=== PATIENT | male | born 1970 | race Caucasian/White ===

== ENCOUNTER 2021-01-20 13:32 | Emergency (ER) | payer OTHER ==
[2021-01-20] MEDS ORDERED: DIPHTH,PERTUSS(ACELL),TET 0.5 ML DISP.SYRIN IM ONE ×2 (13:38→14:05)
[2021-01-20 13:39] VITALS: BP 172/97; PULSE 73; TEMP 99.3; BMI 29.7
== END 2021-01-20 14:50 | disposition home or self-care (01) ==
LOC: FER 13:32
PROC: 3E0234Z Introduction of Serum, Toxoid and Vaccine into Muscle, Percutaneous Approach (ICD-10-PCS; principal; 2021-01-20)
DX: S01.419A Laceration without foreign body of unspecified cheek and temporomandibular area, initial encounter (principal)
CPT/HCPCS: 90715; 99284-25

== ENCOUNTER 2021-01-27 10:43 | Emergency (ER) | payer OTHER ==
[2021-01-27 10:48] VITALS: BP 156/100; PULSE 95; TEMP 99; BMI 29.7
== END 2021-01-27 11:07 | disposition home or self-care (01) ==
LOC: FER 10:43
DX: Z48.02 Encounter for removal of sutures (principal)
CPT/HCPCS: 99281-25